=== PATIENT | female | born 1955 | race Caucasian/White ===

== ENCOUNTER 2016-10-14 17:12 | Emergency (ER) | payer BC ==
[~2016-10-14] VITALS: Ht 157.5 cm; Wt 77.1 kg
[2016-10-14] MEDS ORDERED: NACL 0.9% 1,000 ML IV SCH (17:15)
[2016-10-14 17:19] VITALS: BP_SYST 196
--- NOTE | 2016-10-14 17:28 | NUR ---
Pt placed to ER bed 06, to gown, to supervisor sewer system. Report given to SY Cabrera.
--- NOTE | 2016-10-14 17:30 | NUR ---
PATIENT TO ER BED 6. AT BEDSIDE.PER PATIENT SHE STARTED BEING DIZZY THIS MORNING STATED "I FEEL LIKE THE ROOM IS SPINNING".DOES NOT WANT TO OPEN EYES.NOTED WITH UNSTEADY GAIT WHEN TRANSFERRED FROM WHEELCHAIR TO BED.NO OTHER COMPLAIN/INJURIES PER PATIENT OR NOTED
--- NOTE | 2016-10-14 17:30 | NUR ---
# 18 gauge angiocath placed to LAC. Use of asceptic technique. Opsite placed over site. Blood return noted. Blood for lab drawn from site. Flushed with 10 cc of normal saline. No evidence of infiltration noted. Patient tolerated well.
--- NOTE | 2016-10-14 17:40 | NUR ---
Dr. Mallory at bedside to assess pt.
--- NOTE | 2016-10-14 17:47 | NUR ---
PATIENT TO RADIOLOGY FOR CT
[2016-10-14] MEDS ORDERED: MECLIZINE HCL 25 MG TABLET (ANITVERT) PO ONE (18:00)
--- NOTE | 2016-10-14 18:00 | NUR ---
PATIENT ENCOURAGED TO VOID FOR URINE SAMPLE BUT REFUSED STATED "I CAN'T GET UP RIGHT NOW".OFFERED BED GRIFFIN BUT REFUSED "I DON'T THINK I CAN DO IT IN A BED GRIFFIN"
[2016-10-14 18:01] LABS: BASOPHILS % (AUTO) 0.5 % (0.0-2.0); EOSINOPHILS # (AUTO) 0.2 K/uL (0.0-0.4); EOSINOPHILS % (AUTO) 2.1 % (0.0-4.0); HEMATOCRIT 36.1 % (36-48); HEMOGLOBIN 12.4 g/dL (12.0-16.0); LYMPHOCYTES % (AUTO) 13.2 % (20.5-51.5); MEAN CORPUSCULAR HEMOGLOBIN 32 pg (27-31); MEAN CORPUSCULAR HGB CONC 34 % (32-36); MEAN CORPUSCULAR VOLUME 92 fL (79.0-98.0); MONOCYTES # (AUTO) 0.3 K/uL (0.0-1.0); MONOCYTES % (AUTO) 4.4 % (1.7-9.3); NEUTROPHILS # (AUTO) 5.8 K/uL (1.8-7.7); NEUTROPHILS % (AUTO) 79.8 % (40.0-70.0); PLATELET COUNT (AUTO) 446 K/uL (130-430); RED BLOOD CELL COUNT(AUTO) 3.94 MIL/uL (4.2-6.2); RED CELL DISTRIBUTION WIDTH 12.1 % (9.0-15.0); WHITE BLOOD COUNT (AUTO) 7.3 K/uL (4.8-10.8)
[2016-10-14 18:04] LABS: CALCIUM 9.6 mg/dL (8.4-11.0); CREATININE 1.24 mg/dL (0.55-1.30); POTASSIUM 3.8 mmol/L (3.5-5.1)
[2016-10-14 18:08] LABS: ALBUMIN 3.9 g/dL (3.4-4.8); INR 0.9 (0.8-1.2); PROTHROMBIN TIME 10.3 SECS (9.5-12.5); TOTAL BILIRUBIN 0.3 mg/dL (0.0-1.0); TOTAL PROTEIN, SERUM 7.5 g/dL (6.4-8.3)
--- NOTE | 2016-10-14 19:20 | NUR ---
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
[2016-10-14 19:28] LABS: BILIRUBIN,URINE NEGATIVE (NEGATIVE); BLOOD, URINE NEGATIVE (NEGATIVE); CLARITY/URINE CLEAR (CLEAR); COLOR,URINE YELLOW (YELLOW); GLUCOSE,URINE NEGATIVE (NEGATIVE); KETONES,URINE NEGATIVE (NEGATIVE); LEUKOCYTE ESTERASE ,URINE NEGATIVE (NEGATIVE); NITRITE, URINE NEGATIVE (NEGATIVE); PROTEIN URINE NEGATIVE (NEGATIVE); UROBILINOGEN,URINE 0.2 (0.2-1.0)
[2016-10-14 20:15] VITALS: BP_SYST 186
--- NOTE | 2016-10-14 20:15 | NUR ---
Patient given written and verbal discharge instructions and verbalizes understanding. ER MD discussed with patient the results and treatment provided. Patient in stable condition. ID arm band removed. IV catheter removed intact and dressing applied, no active bleeding. Rx of Meclizine given. Patient educated on pain management and to follow up with PMD. Pain Scale 0/10. Opportunity for questions provided and answered.
== END 2016-10-14 20:15 | disposition home or self-care (01) ==
LOC: SED 17:12
DX: R42 Dizziness and giddiness (principal); I10 Essential (primary) hypertension
CPT/HCPCS: 36415; 70450; 80053; 81003; 83605; 84484; 85025; 85610; 85730; 87040; 93005; 96360; 99285; J7030; J8597

== ENCOUNTER 2017-11-25 06:33 | Inpatient (IN) | payer BC ==
[~2017-11-25] VITALS: Ht 157.5 cm; Wt 90.3 kg
[~2017-11-25 06:33] MED LIST: GABA800T PO; HYDR12.585 PO; LEVO75TA7 PO; LOSA100T11 PO; PRO40 PO; RANI-362 PO; ROPI1TAB16 PO; ROPI2TAB4 PO; ZOLP10TA2 PO
[2017-11-25] MEDS ORDERED: CELECOXIB 200 MG CAPSULE ONE (06:41)
[2017-11-25] MEDS ORDERED: GABAPENTIN 300 MG CAPSULE ONE (06:42)
[2017-11-25] MEDS ORDERED: ACETAMINOPHEN 500 MG TABLET ONE (06:42)
[2017-11-25] MEDS ORDERED: oxyCODONE HCL 10 MG TAB.ER.12H PO ONE (06:43)
[2017-11-25] MEDS ORDERED: TRANEXAMIC ACID 650 MG TABLET ONE (06:43)
[2017-11-25] MEDS ORDERED: POLYMYXIN 500,000/BACIT.10,000 UNITS in NS IRR 1 L IR ONE (07:11)
[2017-11-25] MEDS ORDERED: CEFAZOLIN 2 GM IVPB PREMIX 50 ML IV ONE ×2 (07:45→10:55)
[2017-11-25] MEDS ORDERED: ROPIVACAINE 0.2% 550 ML INJ SCH (08:55)
[2017-11-25] MEDS ORDERED: OXYCODONE/ACETAMINOPHEN *10*mg/325 mg TABLET PO PRN (09:00)
[2017-11-25] MEDS ORDERED: KETOROLAC TROMETHAMINE 30 MG VIAL IVP PRN (09:00)
[2017-11-25] MEDS ORDERED: ONDANSETRON HCL 4 MG/2 ML VIAL IVP PRN ×3 (09:00→10:30)
[2017-11-25] MEDS ORDERED: DIPHENHYDRAMINE INJ 50 MG/ML VIAL IVP PRN (09:00)
[2017-11-25] MEDS ORDERED: fentaNYL CITRATE/PF 100 MCG/2 ML AMP IVP PRN ×2 (09:00)
[2017-11-25] MEDS ORDERED: NALBUPHINE HCL 10 MG/ML AMP IVP PRN (09:00)
[2017-11-25] MEDS ORDERED: DIPHENHYDRAMINE HCL 25 MG CAPSULE PO PRN (10:30)
[2017-11-25] MEDS ORDERED: SENNOSIDES 8.6 MG TABLET PO PRN (10:30)
[2017-11-25] MEDS ORDERED: ZOLPIDEM TARTRATE 5 MG TABLET PO SCH (10:30)
[2017-11-25] MEDS ORDERED: PROMETHAZINE HCL 25 MG/ML AMP IVP PRN (10:30)
[2017-11-25] MEDS ORDERED: KETOROLAC TROMETHAMINE 15 MG VIAL IVP PRN ×2 (10:30)
[2017-11-25] MEDS ORDERED: BUPIVACAINE /DEX PF 0.75% SPINAL 2 ML AMP INJ ONE (10:55)
[2017-11-25] MEDS ORDERED: EPINEPHrine 1 MG/ML AMP ONE (10:55)
[2017-11-25] MEDS ORDERED: ONDANSETRON HCL 4 MG/2 ML VIAL ONE ×2 (10:55→11:13)
[2017-11-25] MEDS ORDERED: LR 1,000 ML IV.SOLN IV ONE (10:55)
[2017-11-25] MEDS ORDERED: ROPIVACAINE 0.2% (NAROPIN) PF SOLUTION 100 ML BOTTLE ONE (10:55)
[2017-11-25] MEDS ORDERED: PROPOFOL 200MG/ 20ML VIAL (DIPRIVAN) IV ONE (10:55)
[2017-11-25] MEDS ORDERED: NS 50 ML BAG IV ONE (10:55)
[2017-11-25] MEDS ORDERED: MORPHINE SULFATE 10MG/10ML PF AMP ONE (10:55)
[2017-11-25] MEDS ORDERED: KETOROLAC TROMETHAMINE 30 MG VIAL ONE (10:55)
[2017-11-25] MEDS ORDERED: MIDAZOLAM HCL 5 MG/ML VIAL (VERSED) IV ONE (10:55)
[2017-11-25] MEDS ORDERED: ROPIVACAINE HCL/PF 5 MG/ML 0.5% 30 ML VIAL ONE (10:55)
[2017-11-25] MEDS ORDERED: TRANEXAMIC ACID 1,000 MG/10 ML VIAL IV ONE (10:55)
[2017-11-25] MEDS ORDERED: CEFAZOLIN 1 GM IVPB PREMIX 50 ML IV SCH (11:00)
[2017-11-25] MEDS ORDERED: ePHEDrine sulfate 50 MG/ML VIAL IVP PRN (11:45)
[2017-11-25] MEDS: ePHEDrine sulfate 50 MG/ML VIAL ONE ×4 (11:45→12:15)
[2017-11-25] MEDS ORDERED: ePHEDrine sulfate 50 MG/ML VIAL IVP ONE (12:30)
[2017-11-25] MEDS ORDERED: LR 500 ML IV ONE (12:30)
[2017-11-25 12:45] VITALS: BP_SYST 98
[2017-11-25] MEDS: D5LR 1,000 ML IV SCH (12:49)
[2017-11-25 12:56] VITALS: BP_SYST 109
[2017-11-25] MEDS: ROPIVACAINE 0.2% 550 ML INJ SCH (14:33)
[2017-11-25] MEDS: GABAPENTIN 400 MG CAPSULE PO SCH ×2 (14:45→21:00)
[2017-11-25] MEDS: CEFAZOLIN 1 GM IVPB PREMIX 50 ML IV SCH ×2 (14:48→21:42)
[2017-11-25] MEDS: ACETAMINOPHEN 500 MG TABLET PO SCH ×3 (14:48→21:03)
[2017-11-25 17:19] VITALS: BP_SYST 111
[2017-11-25] MEDS: RIVAROXABAN 10 MG TABLET PO SCH (19:30)
[2017-11-25 20:00] VITALS: BP_SYST 108
[2017-11-25] MEDS: GABAPENTIN 300 MG CAPSULE PO SCH (21:02)
[2017-11-25] MEDS: oxyCODONE HCL 5 MG TABLET PO PRN (21:03)
[2017-11-25] MEDS: CELECOXIB 200 MG CAPSULE PO SCH (21:03)
[2017-11-26] MEDS: D5LR 1,000 ML IV SCH ×2 (00:01→08:00)
[2017-11-26] MEDS: MORPHINE 4 MG/ML INJ. SYRINGE IVP PRN ×5 (00:01→17:51)
[2017-11-26 00:05] VITALS: BP_SYST 94
[2017-11-26] MEDS: LEVOTHYROXINE SODIUM 0.075 MG TABLET PO SCH (06:22)
[2017-11-26] MEDS: PANTOPRAZOLE SODIUM 40 MG TAB PO SCH (06:22)
[2017-11-26] MEDS: CEFAZOLIN 1 GM IVPB PREMIX 50 ML IV SCH (06:22)
[2017-11-26] MEDS: oxyCODONE HCL 5 MG TABLET PO PRN ×3 (06:32→21:06)
[2017-11-26 08:00] VITALS: BP_SYST 100
[2017-11-26 08:34] LABS: BASOPHILS % (AUTO) 0.4 % (0.0-2.0); EOSINOPHILS # (AUTO) 0.6 K/uL (0.0-0.4); EOSINOPHILS % (AUTO) 5.7 % (0.0-4.0); HEMATOCRIT 30.5 % (36-48); HEMOGLOBIN 10.6 g/dL (12.0-16.0); LYMPHOCYTES # (AUTO) 1.1 K/uL (1.0-5.5); LYMPHOCYTES % (AUTO) 10.6 % (20.5-51.5); MEAN CORPUSCULAR HEMOGLOBIN 32 pg (27-31); MEAN CORPUSCULAR HGB CONC 35 % (32-36); MEAN CORPUSCULAR VOLUME 94 fL (79.0-98.0); MONOCYTES # (AUTO) 0.5 K/uL (0.0-1.0); MONOCYTES % (AUTO) 5.3 % (1.7-9.3); NEUTROPHILS # (AUTO) 7.9 K/uL (1.8-7.7); PLATELET COUNT (AUTO) 350 K/uL (130-430); RED BLOOD CELL COUNT(AUTO) 3.26 MIL/uL (4.2-6.2); RED CELL DISTRIBUTION WIDTH 11.6 % (9.0-15.0); WHITE BLOOD COUNT (AUTO) 10.1 K/uL (4.8-10.8)
[2017-11-26 08:42] LABS: CALCIUM 8.8 mg/dL (8.4-11.0); CREATININE 1.3 mg/dL (0.55-1.30); POTASSIUM 3.6 mmol/L (3.5-5.1)
[2017-11-26] MEDS: LOSARTAN POTASSIUM 50 MG TABLET (COZAAR) PO SCH (09:18)
[2017-11-26] MEDS: HYDROCHLOROTHIAZIDE 12.5 MG CAPSULE (HCTZ) PO SCH (09:19)
[2017-11-26] MEDS: GABAPENTIN 400 MG CAPSULE PO SCH ×3 (09:19→21:00)
[2017-11-26] MEDS: RIVAROXABAN 10 MG TABLET PO SCH (09:20)
[2017-11-26] MEDS: ACETAMINOPHEN 500 MG TABLET PO SCH ×3 (09:20→21:09)
[2017-11-26] MEDS: CELECOXIB 200 MG CAPSULE PO SCH ×2 (09:20→21:08)
[2017-11-26] MEDS: ROPIVACAINE 0.2% 550 ML INJ SCH (10:17)
[2017-11-26 12:35] VITALS: BP_SYST 103
[2017-11-26 16:15] VITALS: BP_SYST 108
[2017-11-26 20:00] VITALS: BP_SYST 105
[2017-11-26] MEDS: GABAPENTIN 300 MG CAPSULE PO SCH (21:08)
[2017-11-27 00:21] VITALS: BP_SYST 111
[2017-11-27] MEDS: oxyCODONE HCL 5 MG TABLET PO PRN ×2 (01:45→09:34)
[2017-11-27] MEDS: D5LR 1,000 ML IV SCH ×2 (01:46→04:00)
[2017-11-27 06:28] LABS: CALCIUM 8.8 mg/dL (8.4-11.0); CREATININE 1.21 mg/dL (0.55-1.30); POTASSIUM 3.6 mmol/L (3.5-5.1)
[2017-11-27] MEDS: PANTOPRAZOLE SODIUM 40 MG TAB PO SCH (06:29)
[2017-11-27] MEDS: LEVOTHYROXINE SODIUM 0.075 MG TABLET PO SCH (06:29)
[2017-11-27 06:37] LABS: BASOPHILS % (AUTO) 0.1 % (0.0-2.0); EOSINOPHILS # (AUTO) 0.7 K/uL (0.0-0.4); EOSINOPHILS % (AUTO) 8.3 % (0.0-4.0); HEMATOCRIT 28.6 % (36-48); HEMOGLOBIN 10.2 g/dL (12.0-16.0); LYMPHOCYTES % (AUTO) 11.7 % (20.5-51.5); MEAN CORPUSCULAR HEMOGLOBIN 36 pg (27-31); MEAN CORPUSCULAR HGB CONC 36 % (32-36); MEAN CORPUSCULAR VOLUME 101 fL (79.0-98.0); MONOCYTES # (AUTO) 0.8 K/uL (0.0-1.0); MONOCYTES % (AUTO) 9.4 % (1.7-9.3); NEUTROPHILS # (AUTO) 6.4 K/uL (1.8-7.7); NEUTROPHILS % (AUTO) 70.5 % (40.0-70.0); PLATELET COUNT (AUTO) 322 K/uL (130-430); RED BLOOD CELL COUNT(AUTO) 2.84 MIL/uL (4.2-6.2); RED CELL DISTRIBUTION WIDTH 11.8 % (9.0-15.0); WHITE BLOOD COUNT (AUTO) 8.9 K/uL (4.8-10.8)
[2017-11-27] MEDS: HYDROCHLOROTHIAZIDE 12.5 MG CAPSULE (HCTZ) PO SCH (09:00)
[2017-11-27] MEDS: LOSARTAN POTASSIUM 50 MG TABLET (COZAAR) PO SCH (09:00)
[2017-11-27 09:13] VITALS: BP_SYST 113
[2017-11-27] MEDS: GABAPENTIN 400 MG CAPSULE PO SCH (09:26)
[2017-11-27] MEDS: CELECOXIB 200 MG CAPSULE PO SCH (09:26)
[2017-11-27] MEDS: ACETAMINOPHEN 500 MG TABLET PO SCH (09:27)
[2017-11-27] MEDS: RIVAROXABAN 10 MG TABLET PO SCH (09:36)
[2017-11-27 11:48] VITALS: BP_SYST 126
[2017-11-27] MEDS ORDERED: HYDR-3924 PO (11:59)
[2017-11-27] MEDS ORDERED: RIVA10TA PO (12:00)
[2017-11-27 13:00] VITALS: BP_SYST 126
== END 2017-11-27 12:38 | disposition home health service (06) | DRG 470 ==
LOC: SMU 06:33 → STU 13:00 → SMU 11-26 15:32
PROVIDERS: ADMIT Orthopaedic Surgery; ATTEND Orthopaedic Surgery
PROC: 0SRC0J9 Replacement of Right Knee Joint with Synthetic Substitute, Cemented, Open Approach (ICD-10-PCS; principal; 2017-11-25 07:30)
DX: M17.11 Unilateral primary osteoarthritis, right knee (principal); I10 Essential (primary) hypertension; Z79.899 Other long term (current) drug therapy
CPT/HCPCS: 36415; 80048; 85025; 87081; 88305; 88311; 97039; 97110-GP; 97116-GP; 97530-GP; 97535-GP; C1713; C1776; J0171; J0690; J1885; J2250; J2270; J2274; J2405; J2704; J2795; J3490; J7120

== ENCOUNTER 2018-11-14 07:58 | Emergency (ER) | payer BC ==
[~2018-11-14] VITALS: Ht 157.5 cm; Wt 93.4 kg
[~2018-11-14 07:58] MED LIST changes: +HYDR-3924 PO; -LOSA100T11 PO; +LOSA100T3 PO; +RIVA10TA PO; -ROPI1TAB16 PO; +ROPI1TAB2 PO
--- NOTE | 2018-11-14 08:00 | NUR ---
Patient to ER bed 8 to gown for evaluation. Side rails up. Assumed care of patient.
[2018-11-14 08:03] VITALS: BP_SYST 157
--- NOTE | 2018-11-14 08:04 | NUR ---
Patient complain of bilateral hand tingling, numbness, for greater than one month. Patient also has neck pain. Patient has been followed on an outpatient basis with PCP and recieved referral to surgery for carpal tunnel.
--- NOTE | 2018-11-14 08:05 | NUR ---
ER Dr. Altamirano at bedside examining patient.
[2018-11-14] MEDS ORDERED: HYDROcodone/ACETAMIN 5-325 MG TAB (NORCO/ VICODIN) PO ONE (08:15)
[2018-11-14] MEDS ORDERED: ONDANSETRON 4 MG ODT TAB PO ONE (08:15)
[2018-11-14 08:38] LABS: BASOPHILS # (AUTO) 0.1 K/uL (0.0-0.2); BASOPHILS % (AUTO) 0.7 % (0.0-2.0); EOSINOPHILS # (AUTO) 0.5 K/uL (0.0-0.4); EOSINOPHILS % (AUTO) 5.3 % (0.0-4.0); HEMATOCRIT 39.4 % (36-48); HEMOGLOBIN 13.3 g/dL (12.0-16.0); LYMPHOCYTES # (AUTO) 1.5 K/uL (1.0-5.5); LYMPHOCYTES % (AUTO) 17.5 % (20.5-51.5); MEAN CORPUSCULAR HEMOGLOBIN 31 pg (27-31); MEAN CORPUSCULAR HGB CONC 34 % (32-36); MEAN CORPUSCULAR VOLUME 91 fL (79.0-98.0); MONOCYTES # (AUTO) 0.5 K/uL (0.0-1.0); MONOCYTES % (AUTO) 6.3 % (1.7-9.3); NEUTROPHILS # (AUTO) 6.1 K/uL (1.8-7.7); NEUTROPHILS % (AUTO) 70.2 % (40.0-70.0); PLATELET COUNT (AUTO) 432 K/uL (130-430); RED BLOOD CELL COUNT(AUTO) 4.34 MIL/uL (4.2-6.2); RED CELL DISTRIBUTION WIDTH 13.2 % (9.0-15.0); WHITE BLOOD COUNT (AUTO) 8.6 K/uL (4.8-10.8)
[2018-11-14 08:48] LABS: CALCIUM 10.4 mg/dL (8.4-11.0); CREATININE 1.08 mg/dL (0.55-1.30); POTASSIUM 4.3 mmol/L (3.5-5.1)
[2018-11-14 08:51] LABS: INR 0.9 (0.8-1.2); PROTHROMBIN TIME 9.6 SECS (9.5-12.5)
[2018-11-14 08:53] LABS: ALBUMIN 3.8 g/dL (3.4-4.8); TOTAL BILIRUBIN 0.3 mg/dL (0.0-1.0)
[2018-11-14 11:04] VITALS: BP_SYST 141
--- NOTE | 2018-11-14 11:04 | NUR ---
Patient given written and verbal discharge instructions and verbalizes understanding. ER MD discussed with patient the results and treatment provided. Patient in stable condition. ID arm band removed. Rx of Macrobid given. Patient educated on pain management and to follow up with PMD. Pain Scale 0/10. Opportunity for questions provided and answered. Medication side effect fact sheet provided.
== END 2018-11-14 11:04 | disposition home or self-care (01) ==
LOC: SED 07:58
DX: R60.0 Localized edema (principal); M79.7 Fibromyalgia; I10 Essential (primary) hypertension; Z79.899 Other long term (current) drug therapy
CPT/HCPCS: 36415; 70360; 71045; 74176; 80053; 81002; 83690; 83880; 84484; 85025; 85610; 85730; 93005; 99284; Q0162

== ENCOUNTER 2018-12-09 00:54 | Emergency (ER) | payer BC ==
[~2018-12-09] VITALS: Ht 157.5 cm; Wt 90.7 kg
[2018-12-09 00:55] VITALS: BP_SYST 142
--- NOTE | 2018-12-09 01:00 | NUR ---
Patient to ER bed 8 to gown for evaluation. Side rails up. Report given to VALERIA DAN.
--- NOTE | 2018-12-09 01:05 | NUR ---
Patient BIBA s/p fall out of bed complaining of pain to right shoulder radiating down right arm. denies any KO. No deformities noted. Pain 10/. No other complaints/injuries per patient or as noted. WIll continue to monitor.
--- NOTE | 2018-12-09 01:21 | NUR ---
ER Dr. Sparks at bedside examining patient.
[2018-12-09] MEDS ORDERED: KETOROLAC TROMETHAMINE 30 MG VIAL IM ONE (02:45)
[2018-12-09] MEDS ORDERED: DIPHENHYDRAMINE INJ 50 MG/ML VIAL IM ONE (02:45)
--- NOTE | 2018-12-09 03:10 | NUR ---
No adverse reactions noted after medication administration. Will continue to monitor.
[2018-12-09 03:49] VITALS: BP_SYST 138
--- NOTE | 2018-12-09 03:49 | NUR ---
Patient given written and verbal discharge instructions and verbalizes understanding. ER MD discussed with patient the results and treatment provided. Patient in stable condition. ID arm band removed. No Rx given. Patient educated on pain management and to follow up with PMD. Pain Scale 2/10 tolerable to patient. Opportunity for questions provided and answered.
== END 2018-12-09 03:49 | disposition home or self-care (01) ==
LOC: SED 00:54
DX: S46.911A Strain of unspecified muscle, fascia and tendon at shoulder and upper arm level, right arm, initial encounter (principal); S46.912A Strain of unspecified muscle, fascia and tendon at shoulder and upper arm level, left arm, initial encounter; S40.021A Contusion of right upper arm, initial encounter; E03.9 Hypothyroidism, unspecified; W06.XXXA Fall from bed, initial encounter; Y93.89 Activity, other specified; Y92.89 Other specified places as the place of occurrence of the external cause; Y99.8 Other external cause status
CPT/HCPCS: 73030; 96372; 99283; J1200; J1885

== ENCOUNTER 2018-12-12 08:25 | Inpatient (IN) | payer BC ==
[~2018-12-12] VITALS: Ht 157.5 cm; Wt 103.0 kg
[2018-12-12 08:25] VITALS: BP_SYST 88
[2018-12-12] MEDS ORDERED: NACL 0.9% 1,000 ML IV ONE (08:45)
[2018-12-12 09:22] LABS: BASOPHILS % (AUTO) 0.5 % (0.0-2.0); EOSINOPHILS # (AUTO) 0.4 K/uL (0.0-0.4); EOSINOPHILS % (AUTO) 5.7 % (0.0-4.0); HEMATOCRIT 33.7 % (36-48); HEMOGLOBIN 11.5 g/dL (12.0-16.0); LYMPHOCYTES # (AUTO) 0.9 K/uL (1.0-5.5); LYMPHOCYTES % (AUTO) 11.9 % (20.5-51.5); MEAN CORPUSCULAR HEMOGLOBIN 32 pg (27-31); MEAN CORPUSCULAR HGB CONC 34 % (32-36); MEAN CORPUSCULAR VOLUME 92 fL (79.0-98.0); MONOCYTES # (AUTO) 0.5 K/uL (0.0-1.0); MONOCYTES % (AUTO) 6.3 % (1.7-9.3); NEUTROPHILS # (AUTO) 5.5 K/uL (1.8-7.7); NEUTROPHILS % (AUTO) 75.6 % (40.0-70.0); PLATELET COUNT (AUTO) 310 K/uL (130-430); RED BLOOD CELL COUNT(AUTO) 3.66 MIL/uL (4.2-6.2); RED CELL DISTRIBUTION WIDTH 13.2 % (9.0-15.0); WHITE BLOOD COUNT (AUTO) 7.3 K/uL (4.8-10.8)
[2018-12-12 09:31] LABS: ANION GAP 7 (5-15); CALCIUM 9.8 mg/dL (8.4-11.0); CHLORIDE 100 mmol/L (98-107); CREATININE 1.96 mg/dL (0.55-1.30); GLUCOSE 82 mg/dL (70-99); POTASSIUM 3.7 mmol/L (3.5-5.1); SODIUM SERUM 134 mmol/L (136-145); UREA NITROGEN, BLOOD 74 mg/dL (8-21)
[2018-12-12 09:34] LABS: GFR AFRICAN AMERICAN 33 mL/min (>90); INR 0.9 (0.8-1.2); PROTHROMBIN TIME 9.2 SECS (9.5-12.5)
[2018-12-12 09:37] LABS: ALANINE AMINOTRANSFERASE 41 U/L (12-78); ALBUMIN 3.3 g/dL (3.4-4.8); ASPARTATE AMINOTRANSFERASE 27 U/L (10-37); TOTAL BILIRUBIN 0.5 mg/dL (0.0-1.0)
[2018-12-12] MEDS ORDERED: NALOXONE HCL 2 MG/2 ML SYR IVP ONE (09:45)
[2018-12-12 09:50] LABS: ACETAMINOPHEN < 1 ug/mL (1-30); ALCOHOL, BLOOD < 3 mg/dL (<10)
[2018-12-12 10:12] LABS: CREATINE KINASE MB 18.5 ng/mL (0-3.6)
[2018-12-12] MEDS ORDERED: FAMO40TA7 PO (11:53)
[2018-12-12] MEDS ORDERED: ZOLP10TA2 PO (11:53)
[2018-12-12] MEDS ORDERED: CYCL-10 PO (11:53)
[2018-12-12] MEDS ORDERED: PRAM0.5T3 PO (11:53)
[2018-12-12] MEDS ORDERED: LOSA1TAB37 PO (11:53)
[2018-12-12] MEDS ORDERED: DULO60CA41 PO (11:53)
[2018-12-12] MEDS ORDERED: MELA3TAB PO (11:53)
[2018-12-12] MEDS ORDERED: MECL12.584 PO (11:53)
[2018-12-12] MEDS ORDERED: ACETAMINOPHEN 650 MG/20.3 ML UDC PO PRN (12:00)
[2018-12-12] MEDS ORDERED: ONDANSETRON HCL 4 MG/2 ML VIAL IVP PRN (12:00)
[2018-12-12 12:28] LABS: BARBITURATE, URINE NEGATIVE (NEG <=200); BENZODIAZEPINE, URINE NEGATIVE (NEG <=150); CANNABINOID, URINE NEGATIVE (NEG <=50); COCAINE, URINE NEGATIVE (NEG <=150); METHAMPHETAMINES SCREEN,URINE NEGATIVE (NEG <=500); OPIATE, URINE NEGATIVE (NEG <=100); PHENCYCLIDINE SCREEN,URINE NEGATIVE (NEG <=25); UR TRICYCLIC ANTIDEPRESSANTS NEGATIVE (NEG <=300); URINE AMPHETAMINE NEGATIVE (NEG <=500); URINE METHADONE NEGATIVE (NEG <=200); URINE OXYCODONE SCREEN NEGATIVE (NEG <=100); URINE PROPOXYPHENE SCREEN NEGATIVE (NEG <=300)
[2018-12-12 13:18] VITALS: BP_SYST 103
[2018-12-12 19:50] VITALS: BP_SYST 95
[2018-12-12] MEDS ORDERED: ZOLPIDEM TARTRATE 5 MG TABLET PO PRN (23:15)
[2018-12-12] MEDS ORDERED: MELATONIN 3 MG TABLET PO PRN (23:15)
[2018-12-12] MEDS ORDERED: GABAPENTIN 300 MG CAPSULE PO ONE (23:45)
[2018-12-12] MEDS: HYDROcodone/ACETAMIN 5-325 MG TAB (NORCO/ VICODIN) PO PRN (23:57)
[2018-12-13 00:18] VITALS: BP_SYST 103
[2018-12-13 08:29] VITALS: BP_SYST 121
[2018-12-13] MEDS ORDERED: MELATONIN 3 MG TABLET PO PRN (09:39)
[2018-12-13 11:29] VITALS: BP_SYST 103
[2018-12-13 13:13] LABS: CHOLESTEROL 171 mg/dL (<200); HDL CHOLESTEROL 47 mg/dL (>55); LDL CHOLESTEROL 102 mg/dL (<100); TRIGLYCERIDES 139 mg/dL (30-150)
[2018-12-13 15:01] VITALS: BP_SYST 103
[2018-12-13 15:03] VITALS: BP_SYST 104
[2018-12-13] MEDS: HYDROcodone/ACETAMIN 5-325 MG TAB (NORCO/ VICODIN) PO PRN ×2 (15:10→21:11)
[2018-12-13] MEDS: GABAPENTIN 300 MG CAPSULE PO SCH ×2 (15:11→20:13)
[2018-12-13] MEDS: CYCLOBENZAPRINE HCL 10 MG TABLET (FLEXERIL) PO PRN (15:11)
[2018-12-13 20:00] VITALS: BP_SYST 116
[2018-12-13] MEDS: MELATONIN 3 MG TABLET PO SCH (20:14)
[2018-12-13] MEDS: ZOLPIDEM TARTRATE 5 MG TABLET PO PRN (21:10)
[2018-12-14 01:21] VITALS: BP_SYST 153
[2018-12-14] MEDS: CYCLOBENZAPRINE HCL 10 MG TABLET (FLEXERIL) PO PRN ×3 (01:40→15:25)
[2018-12-14] MEDS: HYDROcodone/ACETAMIN 5-325 MG TAB (NORCO/ VICODIN) PO PRN ×3 (03:21→15:25)
[2018-12-14] MEDS: LEVOTHYROXINE SODIUM 0.075 MG TABLET PO SCH (05:57)
[2018-12-14] MEDS: FAMOTIDINE 20 MG TABLET PO SCH (08:32)
[2018-12-14] MEDS: GABAPENTIN 300 MG CAPSULE PO SCH ×3 (08:32→20:22)
[2018-12-14] MEDS: ASPIRIN 81 MG TAB.CHEW PO SCH (08:33)
[2018-12-14] MEDS: PRAMIPEXOLE DI-HCL 0.25 MG TABLET PO SCH (08:33)
[2018-12-14] MEDS: DULoxetine HCL 30 MG CAPSULE.DR (CYMBALTA) PO SCH (08:33)
[2018-12-14] MEDS: LOSARTAN POTASSIUM 50 MG TABLET (COZAAR) PO SCH (08:33)
[2018-12-14] MEDS: HYDROCHLOROTHIAZIDE 12.5 MG CAPSULE (HCTZ) PO SCH (08:34)
[2018-12-14] MEDS: ENOXAPARIN SODIUM 30 MG/0.3 ML SYRINGE SUBCUT SCH (08:37)
[2018-12-14 11:21] VITALS: BP_SYST 119
[2018-12-14 15:20] VITALS: BP_SYST 111
[2018-12-14] MEDS: NEO/POLYMYX B SULF/DEXAMETH 5 ML OPHT. DROPS.SUSP OP SCH ×2 (17:57→23:30)
[2018-12-14 20:20] VITALS: BP_SYST 101
[2018-12-14] MEDS: MELATONIN 3 MG TABLET PO SCH (20:22)
[2018-12-14] MEDS: ZOLPIDEM TARTRATE 5 MG TABLET PO PRN (22:16)
[2018-12-15 00:30] VITALS: BP_SYST 128
[2018-12-15] MEDS: HYDROcodone/ACETAMIN 5-325 MG TAB (NORCO/ VICODIN) PO PRN ×3 (04:54→21:29)
[2018-12-15] MEDS: NEO/POLYMYX B SULF/DEXAMETH 5 ML OPHT. DROPS.SUSP OP SCH ×3 (05:01→17:46)
[2018-12-15] MEDS: CYCLOBENZAPRINE HCL 10 MG TABLET (FLEXERIL) PO PRN ×2 (06:13→21:26)
[2018-12-15] MEDS: LEVOTHYROXINE SODIUM 0.075 MG TABLET PO SCH (06:13)
[2018-12-15 08:00] VITALS: BP_SYST 157
[2018-12-15 08:35] LABS: BASOPHILS % (AUTO) 0.5 % (0.0-2.0); EOSINOPHILS # (AUTO) 0.4 K/uL (0.0-0.4); EOSINOPHILS % (AUTO) 5.8 % (0.0-4.0); HEMATOCRIT 34.4 % (36-48); HEMOGLOBIN 11.7 g/dL (12.0-16.0); LYMPHOCYTES # (AUTO) 1.4 K/uL (1.0-5.5); LYMPHOCYTES % (AUTO) 20.9 % (20.5-51.5); MEAN CORPUSCULAR HEMOGLOBIN 32 pg (27-31); MEAN CORPUSCULAR HGB CONC 34 % (32-36); MEAN CORPUSCULAR VOLUME 92 fL (79.0-98.0); MONOCYTES # (AUTO) 0.5 K/uL (0.0-1.0); MONOCYTES % (AUTO) 8.4 % (1.7-9.3); NEUTROPHILS # (AUTO) 4.2 K/uL (1.8-7.7); NEUTROPHILS % (AUTO) 64.4 % (40.0-70.0); PLATELET COUNT (AUTO) 321 K/uL (130-430); RED BLOOD CELL COUNT(AUTO) 3.72 MIL/uL (4.2-6.2); RED CELL DISTRIBUTION WIDTH 13.3 % (9.0-15.0); WHITE BLOOD COUNT (AUTO) 6.5 K/uL (4.8-10.8)
[2018-12-15 08:47] LABS: ALBUMIN 3.1 g/dL (3.4-4.8); CALCIUM 10.4 mg/dL (8.4-11.0); CREATININE 1.34 mg/dL (0.55-1.30); POTASSIUM 4.8 mmol/L (3.5-5.1); TOTAL BILIRUBIN 0.2 mg/dL (0.0-1.0)
[2018-12-15] MEDS: GABAPENTIN 300 MG CAPSULE PO SCH ×3 (09:08→21:26)
[2018-12-15] MEDS: ASPIRIN 81 MG TAB.CHEW PO SCH (09:08)
[2018-12-15] MEDS: PRAMIPEXOLE DI-HCL 0.25 MG TABLET PO SCH (09:08)
[2018-12-15] MEDS: FAMOTIDINE 20 MG TABLET PO SCH (09:09)
[2018-12-15] MEDS: DULoxetine HCL 30 MG CAPSULE.DR (CYMBALTA) PO SCH (09:09)
[2018-12-15] MEDS: LOSARTAN POTASSIUM 50 MG TABLET (COZAAR) PO SCH (09:09)
[2018-12-15] MEDS: ENOXAPARIN SODIUM 30 MG/0.3 ML SYRINGE SUBCUT SCH (09:10)
[2018-12-15] MEDS: HYDROCHLOROTHIAZIDE 12.5 MG CAPSULE (HCTZ) PO SCH (09:10)
[2018-12-15 12:00] VITALS: BP_SYST 109
[2018-12-15 16:49] VITALS: BP_SYST 97
[2018-12-15 21:21] VITALS: BP_SYST 115
[2018-12-15] MEDS: MELATONIN 3 MG TABLET PO SCH (21:29)
[2018-12-15 21:33] VITALS: BP_SYST 115
== END 2018-12-15 22:45 | DRG 552 ==
LOC: SED 08:25 → STU 11:56 → SMU 12-14 13:01
PROVIDERS: ADMIT Internal Medicine; ATTEND Internal Medicine
DX: M48.02 Spinal stenosis, cervical region (principal); Z68.41 Body mass index [BMI] 40.0-44.9, adult; E03.9 Hypothyroidism, unspecified; G25.81 Restless legs syndrome; E78.5 Hyperlipidemia, unspecified; G89.29 Other chronic pain; I10 Essential (primary) hypertension; M54.16 Radiculopathy, lumbar region; M79.7 Fibromyalgia; E66.9 Obesity, unspecified; W19.XXXA Unspecified fall, initial encounter; F32.9 Major depressive disorder, single episode, unspecified; G47.00 Insomnia, unspecified; G62.9 Polyneuropathy, unspecified; I48.0 Paroxysmal atrial fibrillation; Z79.899 Other long term (current) drug therapy; Y93.89 Activity, other specified; Y99.8 Other external cause status
CPT/HCPCS: 36415; 70450-TC; 71045; 72146; 80053; 80061; 80307; 82140-TC; 82550-TC; 82553-TC; 83605; 83880; 84484; 85025; 85610-TC; 85730-TC; 93005; 93306; 93880; 95816; 96374; 99285; G0378; G0480; G0481; G0482; J1650; J2310; J7030